=== PATIENT | female | born 1995 | race African-American/Black ===

== ENCOUNTER 2016-10-10 15:22 | Inpatient (IN) ==
[2016-10-10] MEDS: LACTATED RINGERS 1,000 ML IV SCH ×2 (16:30→23:15)
[2016-10-10] MEDS ORDERED: BETAMETH SODIUM PHOS/ACETATE 30 MG/5 ML VIAL ONE (16:50)
[2016-10-10] MEDS: BETAMETH SODIUM PHOS/ACETATE 30 MG/5 ML VIAL IM SCH (17:24)
[2016-10-11] MEDS: LACTATED RINGERS 1,000 ML IV SCH (05:07)
[2016-10-11] MEDS: BETAMETH SODIUM PHOS/ACETATE 30 MG/5 ML VIAL IM SCH (05:08)
[2016-10-11 06:57] LABS: Basophils % 0.1 % (0.0-0.8); Hematocrit 33.8 VOL% (35.7-47.0); Hemoglobin 11.6 GM/DL (12.0-16.0); Immature Granulocytes % 0.7 %; Immature Granulocytes Absolute 0.12 #; Lymphocytes # 1.5 10*3/uL (1.4-4.0); Lymphocytes % 8.6 % (21.3-54.2); Mean Corpuscular HGB Conc 34.3 GM/DL (32-36); Mean Corpuscular Hemoglobin 30 PG (27-34); Mean Corpuscular Volume 87.3 FL (87-102); Mean Platelet Volume 12.6 FL (9.6-12.0); Monocytes # 0.3 10*3/uL (0.11-0.8); NRBC # 0.03 10*3/uL; Neutrophils % 88.6 % (38.7-73.9); Platelet Count 123 10*3/uL (130-400); Red Blood Count 3.87 10*6/uL (3.8-5.5); Red Cell Distribution Width 13.6 % (9.3-17.3); White Blood Count 16.9 10*3/uL (4.5-13.71)
[2016-10-11 07:15] LABS: INR 0.9; PT Patient Result 9.7 SECS; Partial Thromboplastin Time 23.3 SECS (0-40)
[2016-10-11 07:28] LABS: Albumin 2.4 G/DL (3.4-5.0); Bilirubin,Total 0.5 MG/DL (0.2-1.0); Calcium 8.5 MG/DL (8.5-10.1); Potassium 4.5 MMOL/L (3.5-5.1); Total Protein 5.8 G/DL (6.4-8.3)
--- NOTE | 2016-10-11 08:51 | OB/GYN Progress Note ---
Assessment and Plan (1) Pre-eclampsia affecting , antepartum Status: Acute Assessment and plan: IUP at 33 weeks 5 days with atypical PIH . We will repeat u/s with cord dopplers this morning and repeat BPP/VALORIE . 24 hour urine in progress . 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 the baby is moving well. she has been voiding well . Exam FINGERPRINT TECHNICIAN - Constitutional Vitals: Vital Signs Temp Pulse Resp BP Pulse Ox 10/11/16 07:35 97.8 F 56 L 18 139/74 98 10/11/16 03:39 97.9 F 57 L 18 142/87 10/10/16 23:46 98.1 F 71 18 119/68 10/10/16 20:00 99.3 F 66 17 159/87 General appearance: normal weight, no acute distress - Antepartum / Post Antpartum Exam Heart Rate: cat 1 [place]: none - Head Head exam: Present: normal inspection - Neck Neck exam: Absent: tenderness - Respiratory Respiratory exam: Absent: accessory muscle use - Cardiovascular Cardiovascular exam: Present: regular rate and rhythm - Extremities Exam Extremities exam: Present: other (no clonus). Absent: calf tenderness - Neurological Exam Neurological exam: Present: alert, oriented X3, reflexes normal - Psychiatric Psychiatric exam: Present: normal affect, normal mood - Skin Skin exam: Present: normal color Results - Labs CBC & BMP: 10/11/16 06:47 10/11/16 06:47 - Diagnostic Findings Procedure: Uterus-Nonstress Test: other (cat 1)
--- NOTE | 2016-10-11 09:33 | Ultrasound Report ---
Referring Physician: Becky Salcido Exam: US OB biophysical profile, US OB limited Date: October 11, 2016 Reason: HELLP syndrome, -induced hypertension Comparison: OB limited ultrasound October 10, 2016 Technique: Transabdominal grayscale ultrasound images were obtained. Ultrasound images were captured and stored. Findings: There is a single intrauterine in a cephalic presentation. heart rate is 147 beats per minute. Amniotic fluid is within normal limits an VALORIE of 12.1 cm. The placenta is located anteriorly. Evaluation of anatomy is limited, but the stomach, bladder and kidneys are unremarkable. The S/D ratio measures up to 3.4 at the mid umbilical cord. This is upper normal (95th percentile is approximately 3.6). No definite reverse flow is seen. breathing is 2+, gross body movements is 2+, tone is 2+ and qualitative AFV is 2+. Impression: 1. 8 out of 8 biophysical profile score, low risk for chronic asphyxia. 2. The umbilical cord S/D ratio is 3.4, which is upper normal. PROCEDURE INTERPRETED AT [facility] DEPARTMENT OF RADIOLOGY Final Report Signed by: Dr. Prabhjot Abdul
--- NOTE | 2016-10-11 09:43 | Event Note ---
Spoke with Dr. Ev PARRISH at [facility] . I explained the case to him and per his assessment at this point the pt is considered mild PIH. He explainied reasons for delivery including BPs >160/105, abnormal labs, renal insufficiency, abnormal dopplers or pt showing signs of worseining PIH(neuro symptoms). He explained that the pt having IUGR at <10 th percentile without having abnormal dopplers gives criteria for delivery at 37 weeks. However, if there are further abnormalities we can deliver prior to 37 weeks, just no later than 37 weeks. For now, we will watch the pt closely and keep the pt in house. The 24 hour urine will be up today. We will get daily CMP, CBC, and dopplers BPP/VALORIE. This was all explained to the pt. We will also wathc BPs adn s/s of PIH as well as strict I's and O's.
[2016-10-11 17:56] LABS: Creatinine 24 Hr Urine Result 1.49 G/24HR (0.60-1.80)
[2016-10-12] MEDS: LACTATED RINGERS 1,000 ML IV SCH ×4 (00:31→08:54)
[2016-10-12 05:28] LABS: Basophils % 0.1 % (0.0-0.8); Hematocrit 30.5 VOL% (35.7-47.0); Hemoglobin 10.3 GM/DL (12.0-16.0); Immature Granulocytes % 1.8 %; Immature Granulocytes Absolute 0.33 #; Lymphocytes # 1.9 10*3/uL (1.4-4.0); Lymphocytes % 10.3 % (21.3-54.2); Mean Corpuscular HGB Conc 33.8 GM/DL (32-36); Mean Corpuscular Hemoglobin 30 PG (27-34); Mean Corpuscular Volume 88.9 FL (87-102); Mean Platelet Volume 12.7 FL (9.6-12.0); Monocytes # 0.9 10*3/uL (0.11-0.8); Monocytes % 4.9 % (1.7-12.7); NRBC # 0.03 10*3/uL; Neutrophils # 15.3 10*3/uL (1.4-7.4); Neutrophils % 82.9 % (38.7-73.9); Platelet Count 122 10*3/uL (130-400); Red Blood Count 3.43 10*6/uL (3.8-5.5); Red Cell Distribution Width 13.8 % (9.3-17.3); White Blood Count 18.5 10*3/uL (4.5-13.71)
[2016-10-12 05:59] LABS: Albumin 2.2 G/DL (3.4-5.0); Bilirubin,Total 1.5 MG/DL (0.2-1.0); Calcium 7.7 MG/DL (8.5-10.1); Potassium 4.3 MMOL/L (3.5-5.1); Total Protein 5.3 G/DL (6.4-8.3)
[2016-10-12] MEDS: BETAMETH SODIUM PHOS/ACETATE 30 MG/5 ML VIAL IM SCH (06:17)
--- NOTE | 2016-10-12 09:47 | OB/GYN Progress Note ---
SHADE BANDER - PN: Subj Interval history: Procedure report yesterday from Dr. Salcido on this patient and the management plan was discussed per her phone conversation with [facility]. Her 24-hour urine did come back yesterday showing that she had 3 g protein in her urine. Her blood pressures have been good on no antihypertensive medications. She denies any headache right upper quadrant pain or visual changes. According Dr. Salcido patient does have IUGR with estimated weight less than 10th percentile. She's had normal Dopplers. BPP in an Dopplers of been performed this morning result which are pending. She is getting NSTs throughout the day of all of which have been reactive per the nurses account. Plan is continue present management as laid out by [facility] and S there is significant change in status. Exam SHADE BANDER - Constitutional Vitals: Vital Signs Temp Pulse Resp BP Pulse Ox 10/12/16 08:17 80 18 10/12/16 08:00 97.4 F L 80 18 122/60 98 10/12/16 04:00 98.2 F 81 16 144/70 10/12/16 02:00 18 10/12/16 00:00 97.7 F 69 18 116/62 10/11/16 20:00 98.1 F 71 18 138/70 10/11/16 16:00 97.8 F 86 18 131/68 97 10/11/16 14:00 18 10/11/16 11:23 18 10/11/16 11:22 97.7 F 75 18 133/64 10/11/16 10:00 18 Results - Labs CBC & BMP: 10/12/16 05:12 10/12/16 05:12
--- NOTE | 2016-10-12 10:09 | Ultrasound Report ---
History: PIH Date: 10/12/2016 Study: ultrasound biophysical profile Comparison exam: Limited ultrasound from 10/11/2016 available Real-time ultrasound images are captured and archived. There is single intrauterine fetus in vertex presentation with heart rate of 125 beats per minute. The VALORIE measures a normal 9.5 cm. The placenta is anterior without previa. breathing movement, gross body movement, tone, and qualitative amniotic fluid volume are normal. Impression: Low risk for chronic asphyxia. The biophysical profile score is a normal 8 out of 8 PROCEDURE INTERPRETED AT [facility] DEPARTMENT OF RADIOLOGY Final Report Signed by: Dr. Melvi Segovia
--- NOTE | 2016-10-12 10:24 | Ultrasound Report ---
History: PIH Date: 10/12/2016 Study: Obstetric ultrasound limited Comparison exam: Ultrasound from 10/11/2016 available Real-time ultrasound images are captured and archived. There is a single intrauterine fetus in vertex presentation with heart rate of 129 beats per minute. The placenta is anteriorly located without previa. The VALORIE measures a normal 9.6 cm. Cord Doppler was performed. The systolic to diastolic ratio measures 3.1 at the free floating cord, with peak systolic velocity 37.9 cm/s; S./D. ratio measures 2.7 at placental insertion with peak systolic velocity of 33. The cord is not well-seen at the umbilical insertion site. There is diastolic flow above the baseline. Impression: Single intrauterine fetus in vertex presentation with cardiac activity. Cord Doppler as discussed above PROCEDURE INTERPRETED AT [facility] DEPARTMENT OF RADIOLOGY Final Report Signed by: Dr. Melvi Segovia
[2016-10-12] MEDS ORDERED: ACETAMINOPHEN 325 MG TABLET PO PRN (18:10)
[2016-10-12] MEDS ORDERED: ACETAMINOPHEN 325 MG TABLET ONE (18:10)
[2016-10-12] MEDS ORDERED: ONDANSETRON 4 MG/2 ML VIAL IV PRN (20:30)
[2016-10-12] MEDS ORDERED: ONDANSETRON 4 MG/2 ML VIAL ONE (20:31)
[2016-10-12] MEDS ORDERED: ACETAMINOPHEN 500 MG TABLET ONE (22:00)
[2016-10-12] MEDS ORDERED: ACETAMINOPHEN 500 MG TABLET PO PRN (22:04)
[2016-10-13 06:29] LABS: Basophils % 0.1 % (0.0-0.8); Eosinophils % 0.3 % (0.00-10.9); Hematocrit 31.2 VOL% (35.7-47.0); Hemoglobin 10.6 GM/DL (12.0-16.0); Immature Granulocytes % 2.3 %; Immature Granulocytes Absolute 0.31 #; Lymphocytes # 2.6 10*3/uL (1.4-4.0); Lymphocytes % 19.7 % (21.3-54.2); Mean Corpuscular Hemoglobin 31 PG (27-34); Mean Corpuscular Volume 90.2 FL (87-102); Mean Platelet Volume 12.7 FL (9.6-12.0); Monocytes % 7.5 % (1.7-12.7); NRBC # 0.05 10*3/uL; Neutrophils # 9.4 10*3/uL (1.4-7.4); Neutrophils % 70.1 % (38.7-73.9); Platelet Count 109 10*3/uL (130-400); Red Blood Count 3.46 10*6/uL (3.8-5.5); Red Cell Distribution Width 13.9 % (9.3-17.3); White Blood Count 13.4 10*3/uL (4.5-13.71)
[2016-10-13 07:03] LABS: Alanine Aminotransferase 16 U/L (13-56); Albumin 2.3 G/DL (3.4-5.0); Alkaline Phosphatase 117 U/L (45-117); Aspartate Amino Transferase 18 U/L (0-37); Bilirubin,Total < 0.39 MG/DL (0.2-1.0); Blood Urea Nitrogen 14 MG/DL (7-18); Calcium 7.9 MG/DL (8.5-10.1); Glucose 86 MG/DL (74-106); Osmolality,Calculated 285.8 MOS/KG (273-304); Potassium 4.4 MMOL/L (3.5-5.1); Sodium 144 MMOL/L (136-145); Total Protein 5.3 G/DL (6.4-8.3)
--- NOTE | 2016-10-13 13:11 | OB/GYN Progress Note ---
PARAMEDIC SUPERVISOR - PN: Subj Interval history: Patient is status quo her biophysical and Dopplers today are pending. Her heart rate tracing is in nonreactive. Patient states there is been good movement throughout the day yesterday. We'll continue present management. Dr. Salcido to resume care patient in a.m. Exam PARAMEDIC SUPERVISOR - Constitutional Vitals: Vital Signs Temp Pulse Resp BP Pulse Ox 10/13/16 11:55 97.8 F 64 20 135/74 98 10/13/16 08:00 99.1 F 54 L 18 152/90 98 10/13/16 04:00 98.9 F 46 L 20 141/71 10/13/16 02:00 18 10/13/16 00:00 98.4 F 54 L 18 138/87 10/12/16 23:40 18 10/12/16 20:00 98.3 F 60 20 156/85 10/12/16 16:00 98.8 F 75 18 119/60 98 Results - Labs CBC & BMP: 10/13/16 06:24 10/13/16 06:24
--- NOTE | 2016-10-13 15:23 | Ultrasound Report ---
History: HELLP syndrome, VALORIE, biophysical profile Date: 10/13/2016 Study: ultrasound biophysical profile Comparison exam: 10/12/2016 Real-time ultrasound images were captured and archived. There is a single intrauterine fetus in vertex presentation with a heart rate of 134 beats a minute. The placenta is anterior without previa. The VALORIE measures a normal 11.8 cm. breathing movement, gross body movement, and tone are normal. Impression: Low risk for chronic asphyxia. The biophysical profile is a normal 8 out of 8 PROCEDURE INTERPRETED AT [facility] DEPARTMENT OF RADIOLOGY Final Report Signed by: Dr. Melvi Segovia
--- NOTE | 2016-10-13 15:45 | Ultrasound Report ---
History: HELLP syndrome, VALORIE, biophysical profile Date: 10/13/2016 Study: Obstetric ultrasound limited Comparison exam: Similar study 10/12/2016 Real-time ultrasound images were captured and archived. There is a single intrauterine fetus in vertex presentation with a heart rate of 134 beats per minute. The placenta is anterior without previa. The VALORIE measures a normal 11.1 cm. Color Doppler and pulsed-wave Doppler analysis of the umbilical cord was also performed. The systolic to diastolic ratio measures 2.1 at the placenta, 3.4 free-floating, and 3.3 at the cord insertion. There is diastolic flow above the baseline in all locations. Impression: Single intrauterine fetus in vertex presentation. Normal VALORIE. Normal systolic to diastolic ratios of the umbilical cord PROCEDURE INTERPRETED AT [facility] DEPARTMENT OF RADIOLOGY Final Report Signed by: Dr. Melvi Segovia
[2016-10-13] MEDS: LACTATED RINGERS 1,000 ML IV SCH (18:56)
[2016-10-13] MEDS ORDERED: SIMETHICONE CHEW 80 MG TABLET PO ONE (19:28)
[2016-10-13] MEDS ORDERED: SIMETHICONE CHEW 80 MG TABLET PO PRN (19:30)
[2016-10-14 06:23] LABS: Basophils % 0.1 % (0.0-0.8); Eosinophils # 0.1 10*3/uL (0.0-0.87); Eosinophils % 0.7 % (0.00-10.9); Hematocrit 32.1 VOL% (35.7-47.0); Hemoglobin 11.1 GM/DL (12.0-16.0); Immature Granulocytes % 1.7 %; Immature Granulocytes Absolute 0.25 #; Lymphocytes # 2.5 10*3/uL (1.4-4.0); Lymphocytes % 17.6 % (21.3-54.2); Mean Corpuscular HGB Conc 34.6 GM/DL (32-36); Mean Corpuscular Hemoglobin 30 PG (27-34); Mean Corpuscular Volume 87.9 FL (87-102); Mean Platelet Volume 12.4 FL (9.6-12.0); Monocytes # 1.3 10*3/uL (0.11-0.8); Monocytes % 8.7 % (1.7-12.7); NRBC # 0.05 10*3/uL; Neutrophils # 10.2 10*3/uL (1.4-7.4); Neutrophils % 71.2 % (38.7-73.9); Platelet Count 128 10*3/uL (130-400); Red Blood Count 3.65 10*6/uL (3.8-5.5); Red Cell Distribution Width 13.8 % (9.3-17.3); White Blood Count 14.3 10*3/uL (4.5-13.71)
[2016-10-14 06:48] LABS: Alanine Aminotransferase 16 U/L (13-56); Albumin 2.2 G/DL (3.4-5.0); Alkaline Phosphatase 127 U/L (45-117); Aspartate Amino Transferase 17 U/L (0-37); Bilirubin,Total < 0.39 MG/DL (0.2-1.0); Blood Urea Nitrogen 13 MG/DL (7-18); Calcium 8.3 MG/DL (8.5-10.1); Glucose 85 MG/DL (74-106); Osmolality,Calculated 281.1 MOS/KG (273-304); Potassium 4.2 MMOL/L (3.5-5.1); Sodium 142 MMOL/L (136-145); Total Protein 5.5 G/DL (6.4-8.3)
[2016-10-14 07:09] LABS: Macrocytosis 1+; Polychromasia Slight
[2016-10-14] MEDS: LACTATED RINGERS 1,000 ML IV SCH ×4 (08:00→23:56)
[2016-10-14] MEDS ORDERED: PROMETHAZINE 25 MG/1 ML VIAL IM ONE (08:31)
[2016-10-14] MEDS ORDERED: ONDANSETRON 4 MG/2 ML VIAL IV ONE (08:31)
[2016-10-14] MEDS ORDERED: diphenhydrAMINE 50 MG/1 ML VIAL IV PRN ×2 (08:31)
[2016-10-14] MEDS ORDERED: CITRIC ACID/SODIUM CITRATE 30 ML UDCUP PO ONE ×2 (08:31)
[2016-10-14] MEDS ORDERED: ePHEDrine 50 MG/ML AMP IV PRN (08:31)
[2016-10-14] MEDS ORDERED: hydrOXYzine HCL 25 MG/1 ML VIAL IM PRN (08:31)
[2016-10-14] MEDS ORDERED: FAMOTIDINE 20 MG/2 ML VIAL IV ONE (08:31)
--- NOTE | 2016-10-14 08:33 | Ultrasound Report ---
Exam: US OB limited Date: 10/14/2016 12:00 AM Comparison: 10/13/2016 Indication: PIH, cord Doppler Technique: Multiple transabdominal real-time scans were obtained. Color flow scans were obtained with grayscale imaging and spectral duct for analysis. Ultrasound images were captured and stored. Findings: There is a single intrauterine fetus in the cephalic presentation heart rate of 141 bpm. The anterior placenta is not low lying in position with VALORIE 89 mm. No scans were obtained for dating purposes. No detailed survey scans were obtained. Color Doppler and pulse wave Doppler analysis of the umbilical cord was performed. The systolic to diastolic ratio measures 2.6. There is flow during diastole with no reversal of flow. Impression: Single intrauterine fetus in cephalic presentation with normal VALORIE and S/D ratio. PROCEDURE INTERPRETED AT [facility] DEPARTMENT OF RADIOLOGY Final Report Signed by: Dr. Kaye Cruz
--- NOTE | 2016-10-14 08:37 | Ultrasound Report ---
Biophysical profile Clinical history: PIH, history of IUGR Comparison: 10/13/2016 Technique: Multiple transabdominal real-time scans were obtained. Limited color flow scans were obtained. Ultrasound images were captured and stored. Findings: +2 is given for gross body movements, tone and qualitative amniotic fluid volume. 0 given for breathing. The reactive NST was not performed. Single intrauterine fetus in the cephalic presentation with a heart rate of 141 bpm. Anterior placenta with VALORIE of 89 mm. Cervical length of 39.7 mm. Impression: Biophysical profile score 6 of 8. Suspect chronic asphyxia. Report called to Sonia stevens at 8:30 AM on 10/14/2016. Critical test results Ultrasound images were captured and stored. PROCEDURE INTERPRETED AT [facility] DEPARTMENT OF RADIOLOGY Final Report Signed by: Dr. Kaye Cruz
--- NOTE | 2016-10-14 08:48 | Event Note ---
the pt has a 6/8 on her BPP this morning -2 for breathing. it has been 8/8 all weekend. the pt is also complaining of a headache. Her BP was 160/100 this morning. Due to the pt's progressing disease we will proceed with delivery. R/ B/A/C reviewed with the pt and she is amenable to proceeding with a .
[2016-10-14] MEDS ORDERED: OXYTOCIN/LR 20 UNIT/1,000 ML BAG IV ONE ×3 (09:00→12:09)
[2016-10-14] MEDS ORDERED: ONDANSETRON 4 MG/2 ML VIAL ONE (09:05)
[2016-10-14] MEDS ORDERED: MORPHINE 10 MG/10 ML VIAL ONE (10:11)
[2016-10-14 10:27] LABS: Apearance,Urine CLEAR (Clear); Bacteria,Urine Occasional /HPF (Few); Bilirubin,Urine Negative (Negative); Blood, Urine Negative (Negative); Glucose,Urine (UA) Negative (Negative); Ketones,Urine Negative (Negative); Nitrite,Urine Negative (Negative); Protein,Urine 100 MG/DL; RBC,Urine <1 /HPF (0-4); Urine Color Colorless (Yellow); Urine Specific Gravity 1.006 (1.001-1.035); Urine Urobilinogen < 2.0 EU/DL (0.2-1.0); WBC,Urine 1 /HPF (0-6)
[2016-10-14] MEDS ORDERED: MAGNESIUM SULF DRIP 40 GM/1,000 ML ML IV ONE (10:28)
[2016-10-14] MEDS ORDERED: RHO(D) IMMUNE GLOBULIN 300 MCG SYRINGE IM ONE (12:09)
[2016-10-14] MEDS ORDERED: SIMETHICONE CHEW 80 MG TABLET PO PRN (12:09)
[2016-10-14] MEDS ORDERED: MAGNESIUM HYDROXIDE SUSP 30 ML UDCUP PO PRN (12:09)
--- NOTE | 2016-10-14 12:09 | Operative Note ---
Date of procedure: 10/14/16 Pre-op diagnosis: IUP at 34 weeks, severe PIH, nonreassuring status Post-op diagnosis: same Procedure: findings; infant male , cephlic presentation, weight 1,590 gms, apgars pending at time of dictation normal uterus/ovaries/tubes Procedure: Primary low transverse The patient was admitted to the hospital last week for elevated blood pressure mildly abnormal labs and a small for gestational age . The patient was also being ruled out for preeclampsia. Over the weekend the patient was stable and her baby status was noted to be stable with biophysical profiles always 8 of a and reassuring NSTs and stable labs as well as blood pressures. This morning when I went to see the patient the patient was complaining of a headache and the biophysical profile and the was noted to be 6 out of 8 with a nonreactive nonstress test. Risks benefits alternatives and complications were reviewed with the patient and due to the patient being remote from delivery was decided to proceed with a section. The patient was thus taken back to the operating room and spinal anesthesia was found to be adequate and the patient was prepped and draped in the usual sterile fashion. A Pfannenstiel skin incision was made with the scalpel and carried out to underlying fascia the fascia was incised in the midline and extended laterally with Garzon scissors. The superior aspect of the fascial incision was dissected off the rectus muscle the same was done with a preoperative the fascial incision. The rectus muscle was then divided in the midline and the peritoneum identified and entered sharply with Metzenbaum scissors extended superiorly and inferiorly with good visualization of the bladder. The Erlinda retractor was carefully introduced into the abdominal cavity lower uterine segment was visualized. The vesicouterine peritoneum identified and entered sharply with Metzenbaum scissors and extended laterally and the bladder flap was created digitally. The lower uterine segment was incised the scalpel and extended laterally infant's head was delivered without any complications the amniotic fluid was noted to be clear. The rest of the was delivered the cord was clamped and cut and the was handed off to the waiting lining stamper. The placenta was then removed the uterus cleared of all clots and debris with a clean dry sponge. Lower uterine segment was then repaired using 0 Vicryl in a running locked fashion with a second imbricating layer to achieve excellent hemostasis. The ovaries and tubes and uterus all looked within normal limits. Hemostasis was assured Interceed was placed over the lower uterine segment in order to help prevent adhesions. The Erlinda was then removed the peritoneum was reapproximated using 3-0 Vicryl running fashion and the muscle was reapproximated using an interrupted suture of 3-0 Vicryl and another suture of 0 Vicryl in a interrupted fashion. The fascia was reapproximated using 0 Vicryl in a running fashion starting either angle and tying in the middle. The subcutaneous fat was reapproximated using 3- 0 Vicryl in a running fashion. The skin was reapproximated using 3-0 Monocryl in subcuticular fashion. Sponge lap and isthmic counts were correct 3. Anesthesia: spinal Surgeon / Physician: Becky Mauro Estimated blood loss: other (400) IV fluids: 1,000 Urine output: 200 (clear) Specimens: other (placenta) Results - Labs CBC & BMP: 10/14/16 06:09 10/14/16 06:09 Discharge Plan - Discharge Medications No Action Iron 1 mg PO DAILY Pnv95/Ferrous Fumarate/FA [ Tablet] 1 mg PO DAILY - Follow Up or Referral - Forms/Instructions Instructions: Pre-eclampsia and Eclampsia (GEN)
[2016-10-14] MEDS: MAGNESIUM SULF DRIP 40 GM/1,000 ML ML IV SCH (12:18)
--- NOTE | 2016-10-14 14:25 | Anesthesia ---
Anesthesia Post OP - Post Ansesthetic Evaluation Patient seen in post op: Yes Resp: within normal limits CV: within normal limits Mental: within normal limits Temp: within normal limits Pume-Af-Wxijnilzi: within normal limits Nausea and Vomiting: within normal limits Pain: within normal limits
[2016-10-14] MEDS: DOCUSATE SODIUM 100 MG CAPSULE PO SCH (21:17)
[2016-10-14] MEDS: IBUPROFEN 800 MG TABLET PO PRN (21:20)
[2016-10-15] MEDS: LACTATED RINGERS 1,000 ML IV SCH (03:18)
[2016-10-15] MEDS: MAGNESIUM SULF DRIP 40 GM/1,000 ML ML IV SCH (05:55)
[2016-10-15 06:45] LABS: Basophils % 0.1 % (0.0-0.8); Eosinophils # 0.1 10*3/uL (0.0-0.87); Hematocrit 34.7 VOL% (35.7-47.0); Hemoglobin 12.1 GM/DL (12.0-16.0); Immature Granulocytes Absolute 0.14 #; Lymphocytes # 2.1 10*3/uL (1.4-4.0); Mean Corpuscular HGB Conc 34.9 GM/DL (32-36); Mean Corpuscular Hemoglobin 30 PG (27-34); Mean Corpuscular Volume 87.2 FL (87-102); Mean Platelet Volume 12.3 FL (9.6-12.0); Monocytes # 0.8 10*3/uL (0.11-0.8); Monocytes % 5.4 % (1.7-12.7); Neutrophils # 10.9 10*3/uL (1.4-7.4); Neutrophils % 77.5 % (38.7-73.9); Platelet Count 131 10*3/uL (130-400); Red Blood Count 3.98 10*6/uL (3.8-5.5); Red Cell Distribution Width 13.5 % (9.3-17.3); White Blood Count 14.1 10*3/uL (4.5-13.71)
[2016-10-15 07:13] LABS: Alanine Aminotransferase 20 U/L (13-56); Albumin 2.2 G/DL (3.4-5.0); Alkaline Phosphatase 132 U/L (45-117); Aspartate Amino Transferase 24 U/L (0-37); Bilirubin,Total < 0.39 MG/DL (0.2-1.0); Blood Urea Nitrogen 11 MG/DL (7-18); Calcium 6.9 MG/DL (8.5-10.1); Glucose 72 MG/DL (74-106); Osmolality,Calculated 280.1 MOS/KG (273-304); Potassium 4.7 MMOL/L (3.5-5.1); Sodium 142 MMOL/L (136-145); Total Protein 5.6 G/DL (6.4-8.3)
--- NOTE | 2016-10-15 07:55 | OB/GYN Progress Note ---
Assessment and Plan (1) Pre-eclampsia affecting , antepartum Status: Acute Assessment and plan: POD#1 s/p Prim LTCS . s/p 24 hour of magnesium sulfate. continue routine post op care/ transfer to floor after d/c magnesium. 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 she is passing flatus and desires to eat . her pain and bleeding are under control Exam CIGAR HEAD STRINGER - Constitutional Vitals: Vital Signs Temp Pulse Resp BP 10/15/16 04:00 98.2 F 69 18 131/77 10/15/16 01:23 18 10/14/16 23:43 97.6 F 71 18 108/63 10/14/16 22:00 18 10/14/16 21:20 98.5 F 10/14/16 19:36 97.5 F L 65 18 133/85 General appearance: normal weight, no acute distress - Respiratory Respiratory exam: Absent: accessory muscle use - Cardiovascular Cardiovascular exam: Present: regular rate and rhythm - GI/Abdominal GI/Abdominal exam: Present: soft, other (dressing clean and dry). Absent: guarding, rebound - Extremities Exam Extremities exam: Absent: calf tenderness Results - Labs CBC & BMP: 10/15/16 06:13 10/15/16 06:13
[2016-10-15] MEDS: IBUPROFEN 800 MG TABLET PO PRN (10:11)
[2016-10-15] MEDS: DOCUSATE SODIUM 100 MG CAPSULE PO SCH ×2 (10:12→21:20)
[2016-10-15] MEDS: MULTIVITAMIN (PRENATAL) TABLET PO SCH (10:12)
--- NOTE | 2016-10-15 11:23 | Pathology Report from [facility] ---
ACCESSION # : [id number] PATIENT NAME : Aleshia Villanueva ORDERING DR : Becky Salcido MD CLINICAL HX: IUP @ 34 wks gestation, PIH, primary POST-OP DX: Same SPECIMEN INFO: Placenta GROSS DESCRIPTION: Received fresh labeled "ALESHIA VILLANUEVA & PLACENTA" is a 208 gm placenta measuring 16.3 x 12.1 x 1.8 cm. The membranes are pink parikh and translucent. The umbilical cord in eccentrically inserted, contains three vessels and measures 13.5 cm. The surface is blue jeffrey and hemorrhagic with mildly disrupted cotyledons and areas of fibrin present measuring up to 2 cm and focal areas of clotted blood. No other gross abnormalities are identified. Sections submitted A- membranes and cord, B- and maternal surfaces. DIAGNOSIS FOR ALESHIA VILLANUEVA: PLACENTA: Trivascular umbilical cord. Unremarkable membranes. Term placenta with small placental infarction, subchorionic fibrin deposition, dystrophic calcification and increased syncytial clumping. SERVICE DATE: 10/14/2016 REPORT DATE: 10/15/2016 PATHOLOGIST: Jacek Bull III, M.D. MTDD
[2016-10-16] MEDS: IBUPROFEN 800 MG TABLET PO PRN (00:15)
[2016-10-16 07:37] VITALS: BP 132/88
[2016-10-16] MEDS: MULTIVITAMIN (PRENATAL) TABLET PO SCH (09:35)
[2016-10-16] MEDS: DOCUSATE SODIUM 100 MG CAPSULE PO SCH (09:35)
--- NOTE | 2016-10-16 12:00 | Discharge Summary ---
Hospital Course - Hospital Course Hospital Course: The pt was admitted at 33 week 4 days with atypical PIH and IUGR. She had FLM an dwas delivered at 34 weeks via due to worsening symptoms of PIH and nonreassuring monitoring. The was uncomplicated adn her postop care was without complications. She received magnesium sulfate for 24 hours after delivery. Diagnosis - Discharge Diagnosis (1) Pre-eclampsia affecting , antepartum Status: Acute Specialty Discharge - Follow Up or Referrals Follow up with: Becky Mauro MD [Physician] - 10/22/16 3:15 pm Discharge Plan - Discharge Data Disposition: Disch To Home/Self Care Condition at Discharge: Stable Discharge Diet: advance to your usual diet Activity: no lifting Weight Bearing at Discharge: full weight bearing, weight bear as tolerated Driving: not until seen by doctor Contact your physician if you experience:: fever over 101, Difficulty voiding, Redness or swelling, Nausea/Vomiting, Shortness of breath, Bleeding, pain uncontrolled by pain medications - Discharge Medications New HYDROcodone/ACETAMIN 5-325 [Wittmann 5-325] 1 - 2 tablet PO Q6H PRN #30 tablet PRN Reason: Abdominal Pain No Action Iron 1 mg PO DAILY Pnv95/Ferrous Fumarate/FA [ Tablet] 1 mg PO DAILY - Follow Up or Referral Follow Up: Becky Mauro MD [Physician] - 10/22/16 3:15 pm - Forms/Instructions Instructions: Section (DC), Pre-eclampsia and Eclampsia (GEN), Acute Wound Care (DC) Exam - Constitutional Vitals: Period Temp Pulse Resp BP Sys/Hodge Pulse Ox Last 24 Hr 97.7 F-98.8 F 69-93 18-20 126-147/78-91 96-98 General appearance: normal weight, no acute distress - Respiratory Respiratory exam: Absent: accessory muscle use - Cardiovascular Cardiovascular exam: Present: regular rate and rhythm - GI/Abdominal GI/Abdominal exam: Present: soft. Absent: guarding, rebound - Extremities Exam Extremities exam: Absent: calf tenderness - Neurological Exam Neurological exam: Present: alert, oriented X3 - Psychiatric Psychiatric exam: Present: normal affect, normal mood DS: Provider Date of admission: 10/10/16 15:22 Primary care physician: . No PCP Attending physician on admission: Becky Llamas- Consults: 10/14/16 08:32 Consult to Anesthesiology [CONS] Routine Consulting Provider: Reason for Anesthesiology: Pre-op Clearance 10/14/16 12:09 Consult to Accounts Payable Specialist [CONS] Routine Consult Accounts Payable Specialist: Breast Feeding Discharging clinician: Becky Llamas- Expected date of discharge: 10/16/16
== END 2016-10-16 11:55 | disposition home or self-care (01) | DRG 765 ==
LOC: N.LDOUT 15:22 → EDSTATUS 15:22 → N.LD 15:22 → N.OB 10-15 18:40
PROVIDERS: ADMIT Obstetrics & Gynecology; ATTEND Obstetrics & Gynecology
PROC: LDCSECT (ICD-10-PCS; 2016-10-14 08:00)

== ENCOUNTER 2020-03-09 04:37 | Inpatient (IN) ==
[2020-03-09] MEDS ORDERED: DIPHTHERIA/TETANUS ADULT VACCINE 0.5 ML SYRINGE IM ONE (04:42)
[2020-03-09] MEDS ORDERED: HYDROmorphone 2 MG/1 ML VIAL IV STA (04:45)
[2020-03-09] MEDS ORDERED: HYDROmorphone 2 MG/1 ML VIAL ONE ×2 (04:45→10:57)
[2020-03-09 04:55] LABS: Basophils % 0.2 % (0.0-0.8); Eosinophils # 0.2 10*3/uL (0.0-0.87); Eosinophils % 1.7 % (0.00-10.9); Hematocrit 39.3 VOL% (35.7-47.0); Hemoglobin 13.4 GM/DL (12.0-16.0); Immature Granulocytes % 0.9 %; Immature Granulocytes Absolute 0.11 #; Lymphocytes % 24.4 % (21.3-54.2); Mean Corpuscular HGB Conc 34.1 GM/DL (32-36); Mean Corpuscular Volume 90.8 FL (87-102); Mean Platelet Volume 10.1 FL (9.6-12.0); Monocytes % 7.5 % (1.7-12.7); Neutrophils % 65.3 % (38.7-73.9); Platelet Count 193 T/CUMM (130-400); Red Blood Count 4.33 MC/CUMM (3.8-5.5); Red Cell Distribution Width 12.5 % (9.3-17.3); White Blood Count 12.1 T/CUMM (4-12)
[2020-03-09 05:07] LABS: PT Patient Result 10.9 SECS (9.8-11.9); Partial Thromboplastin Time 21.4 SECS (23.9-33.8)
[2020-03-09 05:15] LABS: Apearance,Urine CLEAR (Clear); Bilirubin,Urine Negative (Negative); Blood, Urine Small mg/dL (Negative); Glucose,Urine (UA) Negative (Negative); Ketones,Urine Negative (Negative); Nitrite,Urine Negative (Negative); Protein,Urine Negative; RBC,Urine 1 /HPF (0-4); Squamous Epithelial Cell,Urine Occasional /HPF (0-10); Urine Color Straw (Yellow); Urine Specific Gravity 1.001 (1.001-1.035); Urine Urobilinogen < 2.0 EU/DL (0.2-1.0); WBC,Urine 1 /HPF (0-6)
[2020-03-09 05:21] LABS: Barbiturates Screen,Urine Negative (Negative); Benzodiazepines Screen,Urine Negative (Negative); Cannabinoid Screen,Urine Negative (Negative); Opiate Screen,Urine Negative (Negative); Phencyclidine Screen,Urine Negative (Negative)
[2020-03-09 05:23] LABS: Alanine Aminotransferase 70 U/L (13-56); Albumin 3.4 G/DL (3.4-5.0); Alkaline Phosphatase 98 U/L (45-117); Amylase 210 U/L (25-115); Aspartate Amino Transferase 96 U/L (0-37); Blood Urea Nitrogen 7 MG/DL (7-18); Estimated Glom Filtration Rate 103 ML/MIN; Glucose 103 MG/DL (74-106); Osmolality,Calculated 274.5 MOS/KG (273-304); Total Protein 7.1 G/DL (6.4-8.3)
[2020-03-09] MEDS ORDERED: SODIUM CHLORIDE 0.9% 1,000 ML IV STA (05:37)
[2020-03-09] MEDS ORDERED: propofoL 200 MG/20 ML VIAL IV ONE ×2 (05:54→09:46)
[2020-03-09] MEDS ORDERED: GENTAMICIN 80 MG/2 ML VIAL ONE (06:08)
[2020-03-09] MEDS ORDERED: GENTAMICIN INJ 140 MG in SODIUM CHLORIDE 0.9% 100 ML IV STA (06:10)
[2020-03-09] MEDS ORDERED: propofoL 200 MG/20 ML VIAL IV STA (06:12)
[2020-03-09] MEDS: LACTATED RINGERS 1,000 ML IV SCH ×5 (07:15→16:32)
[2020-03-09] MEDS ORDERED: ceFAZolin 1,000 MG VIAL ONE (07:45)
[2020-03-09] MEDS ORDERED: BACITRACIN OINT 0.9 GM PACK TOP ONE (07:57)
[2020-03-09] MEDS ORDERED: ACETAMINOPHEN 325 MG TABLET PO PRN (08:19)
[2020-03-09] MEDS ORDERED: ALBUTEROL/IPRATROPIUM 3 ML NEB RESP TX PRN (08:19)
[2020-03-09] MEDS ORDERED: BISACODYL 5 MG TABLET PO PRN (08:19)
[2020-03-09] MEDS ORDERED: KETOROLAC 15 MG/1 ML VIAL IV PRN (08:19)
[2020-03-09] MEDS ORDERED: ONDANSETRON 4 MG/2 ML VIAL IV PRN ×2 (08:19→10:55)
[2020-03-09] MEDS ORDERED: LIDOCAINE 2% 5 ML VIAL ONE (09:46)
[2020-03-09] MEDS ORDERED: SEVOFLURANE 1 UNIT/15 MINUTE INH ONE (09:46)
[2020-03-09] MEDS ORDERED: MIDAZOLAM 2 MG/2 ML VIAL ONE (09:46)
[2020-03-09] MEDS ORDERED: GLYCOPYRROLATE 0.4 MG/2 ML VIAL ONE (09:47)
[2020-03-09] MEDS ORDERED: fentaNYL 100 MCG/2 ML VIAL ONE (09:47)
[2020-03-09] MEDS ORDERED: ONDANSETRON 4 MG/2 ML VIAL ONE ×2 (09:47→10:57)
[2020-03-09] MEDS ORDERED: ACETAMINOPHEN 1,000 MG/100 ML VIAL IV ONE (09:47)
[2020-03-09] MEDS ORDERED: DEXAMETHASONE 4 MG/1 ML VIAL ONE (09:47)
[2020-03-09] MEDS ORDERED: PHENYLEPHRINE 1 MG/10 ML SYRINGE IV ONE (09:47)
[2020-03-09] MEDS ORDERED: KETOROLAC 30 MG/1 ML VIAL ONE (09:47)
[2020-03-09] MEDS ORDERED: ROCURONIUM 100 MG/10 ML VIAL IV ONE (09:48)
[2020-03-09] MEDS ORDERED: NEOSTIGMINE 10 MG/10 ML VIAL ONE (09:48)
[2020-03-09] MEDS ORDERED: SUCCINYLCHOLINE 200 MG/10 ML VIAL ONE (09:48)
[2020-03-09] MEDS ORDERED: LACTATED RINGERS 2,000 ML IV ONE (09:48)
[2020-03-09] MEDS: HYDROmorphone 2 MG/1 ML VIAL IV PRN ×2 (11:00→11:25)
[2020-03-09] MEDS: PANTOPRAZOLE 40 MG TABLET PO SCH (13:36)
[2020-03-09] MEDS: ceFAZolin 1,000 MG in SYRINGE 1 EACH IV SCH (16:40)
[2020-03-09] MEDS ORDERED: MORPHINE 4 MG/1 ML VIAL IV PRN (16:44)
[2020-03-09] MEDS: MORPHINE 4 MG/1 ML VIAL IV PRN ×2 (18:32→22:07)
[2020-03-10] MEDS: LACTATED RINGERS 1,000 ML IV SCH ×3 (00:53→18:06)
[2020-03-10] MEDS: ceFAZolin 1,000 MG in SYRINGE 1 EACH IV SCH ×4 (00:57→23:14)
[2020-03-10 05:58] LABS: Basophils % 0.1 % (0.0-0.8); Eosinophils % 0.2 % (0.00-10.9); Immature Granulocytes % 0.3 %; Immature Granulocytes Absolute 0.03 #; Lymphocytes # 1.7 10*3/uL (1.4-4.0); Lymphocytes % 18.1 % (21.3-54.2); Mean Corpuscular HGB Conc 34.4 GM/DL (32-36); Mean Platelet Volume 10.7 FL (9.6-12.0); Neutrophils % 68.3 % (38.7-73.9); Platelet Count 139 T/CUMM (130-400); Red Blood Count 3.48 MC/CUMM (3.8-5.5); Red Cell Distribution Width 12.7 % (9.3-17.3); White Blood Count 9.5 T/CUMM (4-12)
[2020-03-10 06:26] LABS: Albumin 2.6 G/DL (3.4-5.0); Bilirubin,Total 0.9 MG/DL (0.2-1.0); Calcium 8.3 MG/DL (8.5-10.1); Osmolality,Calculated 276.5 MOS/KG (273-304); Total Protein 5.8 G/DL (6.4-8.3)
[2020-03-10] MEDS ORDERED: LISDEXAMFETAMINE 70 MG PO SCH (09:00)
[2020-03-10] MEDS: SERTRALINE 100 MG TABLET PO SCH (09:45)
[2020-03-10] MEDS: PANTOPRAZOLE 40 MG TABLET PO SCH (09:45)
[2020-03-10] MEDS ORDERED: fentaNYL 100 MCG/2 ML VIAL ONE (10:40)
[2020-03-10] MEDS ORDERED: SEVOFLURANE 1 UNIT/15 MINUTE INH ONE (10:40)
[2020-03-10] MEDS ORDERED: propofoL 200 MG/20 ML VIAL IV ONE (10:40)
[2020-03-10] MEDS ORDERED: LIDOCAINE 2% 5 ML VIAL ONE (10:40)
[2020-03-10] MEDS ORDERED: MIDAZOLAM 2 MG/2 ML VIAL ONE (10:41)
[2020-03-10] MEDS ORDERED: PHENYLEPHRINE 1 MG/10 ML SYRINGE IV ONE (10:41)
[2020-03-10] MEDS ORDERED: ONDANSETRON 4 MG/2 ML VIAL ONE (10:41)
[2020-03-10] MEDS ORDERED: LACTATED RINGERS 1,000 ML IV ONE (10:41)
[2020-03-10] MEDS: BACITRACIN OINT 0.9 GM PACK TOP SCH (13:17)
[2020-03-11 08:03] VITALS: BP 127/76
[2020-03-11] MEDS: SERTRALINE 100 MG TABLET PO SCH (08:30)
[2020-03-11] MEDS: BACITRACIN OINT 0.9 GM PACK TOP SCH (08:30)
[2020-03-11] MEDS: ceFAZolin 1,000 MG in SYRINGE 1 EACH IV SCH (08:30)
[2020-03-11] MEDS: PANTOPRAZOLE 40 MG TABLET PO SCH (08:30)
== END 2020-03-11 12:00 | disposition home or self-care (01) | DRG 493 ==
LOC: N.ED 04:37 → SUPCPDRO 07:00 → N.EDINP 07:00 → N.3E 07:10
PROVIDERS: ADMIT Surgery; ATTEND Surgery